=== PATIENT | male | born 1940 | race American Indian/Alaskan Native ===

== ENCOUNTER 2021-01-24 20:53 | Inpatient (IN) | payer MEDICARE ==
--- NOTE | 2021-01-24 21:05 | Event Note ---
ED Screening Note Date of service: 01/24/21 Time: 21:02 ED Screening Note: 80-year-old male was brought to the ER today by close family friend with complaints of slurred speech abnormal gait. Patient states that he noticed the symptoms around 1145 this morning. In addition to the slurred speech and abnormal gait he was having some burning sensation to the left side of his face but this has since resolved. He denies any facial weakness, focal extremity weakness, vision changes, difficulty swallowing, falls or syncope, chest pain or shortness of breath. In triage -slight deviation to the right noted in the tongue but otherwise no other neuro deficits noted in triage. His speech to me appears normal but his friend states that his speech is slurred, does not his normal speech. Patient takes Flomax for prostate issues but otherwise denies any other significant past history. This initial assessment/diagnostic orders/clinical plan/treatment(s) is/are subject to change based on patients health status, clinical progression and re- assessment by fellow clinical providers in the ED. Further treatment and workup at subsequent clinical providers discretion. Patient/guardian urged not to elope from the ED as their condition may be serious if not clinically assessed and managed. Initial orders include: Stroke order sets
--- NOTE | 2021-01-24 21:13 | Emergency Department Report ---
HPI - General Chief Complaint: Neuro Symptoms/Deficit Time Seen by Provider: 01/24/21 21:09 - HPI HPI: This is an 80-year-old male presents to the emergency department from home through triage as a code stroke. Around 11 AM the patient began having some difficulty with and/or slurred speech. He also feels off balanced. At the time of my examination it is difficult to tell that the patient has dysarthria or aphasia but when asked if the patient is having slurred speech or a change in his speech, the patient says "yes I know I am." Patient presents with a very elevated blood pressure but denies any history of hypertension. His only past medical history is previous and/or remote prostate cancer that was treated with radiation seed therapy. He denies any headache, vision change, numbness, focal or lateralizing weakness. He does describe having some mild "heaviness" to the right leg." Patient also says that 1 week ago he had an episode of severe vertigo but that resolved without any treatment. The patient also has not taken anything today prior to presentation. No recent travel or sick contacts at home. ED Past Medical Hx - Past Medical History Previous Medical History?: Yes Additional medical history: enlarged prostate - Social History Smoking Status: Never Smoker ED Review of Systems ROS: Stated complaint: STUMBLING SLURRING SPEEN Other details as noted in HPI Comment: All other systems reviewed and negative Constitutional: denies: chills, fever Eyes: denies: eye pain, vision change ENT: denies: ear pain, throat pain Respiratory: denies: cough, shortness of breath Cardiovascular: denies: chest pain, palpitations Gastrointestinal: denies: abdominal pain, vomiting Genitourinary: denies: dysuria, discharge Musculoskeletal: denies: back pain, arthralgia Skin: denies: rash Neurological: other (Change in speech, disequilibrium). denies: headache Physical Exam - Physical Exam Vital Signs: Vital Signs 01/24/21 21:00 Temperature 98.7 F Pulse Rate 69 Respiratory 14 Rate Blood Pressure 191/90 O2 Sat by Pulse 99 Oximetry Physical Exam: GENERAL: The patient is well-developed well-nourished. HENT: Normocephalic. Atraumatic. Patient has moist mucous membranes. EYES: Extraocular motions are intact. Pupils equal reactive to light bilaterally. NECK: Supple. Trachea is midline. CHEST/LUNGS: Clear to auscultation. There is no respiratory distress noted. HEART/CARDIOVASCULAR: Regular. There is no tachycardia. There is no murmur. ABDOMEN: Abdomen is soft, nontender. Patient has normal bowel sounds. There is no abdominal distention. SKIN: Skin is warm and dry. NEURO: The patient is awake, alert, and oriented. The patient is cooperative. No motor or sensory deficits. Very mild aphasia. No facial asymmetry. No pronator drift or dysmetria. MUSCULOSKELETAL: There is no tenderness or deformity. There is no limitation range of motion. ED Course Vital Signs 01/24/21 21:00 Temperature 98.7 F Pulse Rate 69 Respiratory 14 Rate Blood Pressure 191/90 O2 Sat by Pulse 99 Oximetry - Consultations Consultation #1: 01/24/21 21:21 Patient was seen by the telemedicine neurologist who is asked for an order to be placed for CT angiography of the head and neck. ED Medical Decision Making - Lab Data Result diagrams: 01/24/21 21:49 01/24/21 21:49 Lab Results 01/24/21 01/24/21 01/24/21 Range/Units 21:09 21:49 21:49 WBC 5.5 (4.5-11.0) K/mm3 RBC 5.06 H (3.65-5.03) M/mm3 Hgb 16.0 H (11.8-15.2) gm/dl Hct 45.9 H (35.5-45.6) % MCV 91 (84-94) fl MCH 32 (28-32) pg MCHC 35 H (32-34) % RDW 13.4 (13.2-15.2) % Plt Count 179 (140-440) K/mm3 Lymph % (Auto) 18.0 (13.4-35.0) % Rusk % (Auto) 11.0 H (0.0-7.3) % Eos % (Auto) 1.6 (0.0-4.3) % Baso % (Auto) 0.6 (0.0-1.8) % Lymph # (Auto) 1.0 L (1.2-5.4) K/mm3 Rusk # (Auto) 0.6 (0.0-0.8) K/mm3 Eos # (Auto) 0.1 (0.0-0.4) K/mm3 Baso # (Auto) 0.0 (0.0-0.1) K/mm3 Seg Neutrophils % 68.8 (40.0-70.0) % Seg Neutrophils # 3.8 (1.8-7.7) K/mm3 PT 13.4 (12.2-14.9) Sec. INR 1.04 (0.87-1.13) APTT 33.0 (24.2-36.6) Sec. Thrombin Time 17.5 (15.1-19.6) Sec. Sodium (137-145) mmol/L Potassium (3.6-5.0) mmol/L Chloride (98-107) mmol/L Carbon Dioxide (22-30) mmol/L Anion Gap mmol/L BUN (9-20) mg/dL Creatinine (0.8-1.3) mg/dL Estimated GFR ml/min BUN/Creatinine Ratio % Glucose (75-100) mg/dL POC Glucose 112 H (70-105) mg/dL Calcium (8.4-10.2) mg/dL Total Bilirubin (0.1-1.2) mg/dL AST (5-40) units/L ALT (7-56) units/L Alkaline Phosphatase (35-129) units/L Total Creatine Kinase (55-170) units/L CK-MB (CK-2) (0.0-4.0) ng/mL CK-MB (CK-2) Rel Index (0-4) Troponin T (0.00-0.029) ng/mL Total Protein (6.3-8.2) g/dL Albumin (3.9-5) g/dL Albumin/Globulin Ratio % TSH (0.270-4.200) mlU/mL 01/24/21 01/24/21 01/24/21 Range/Units 21:49 21:49 21:49 WBC (4.5-11.0) K/mm3 RBC (3.65-5.03) M/mm3 Hgb (11.8-15.2) gm/dl Hct (35.5-45.6) % MCV (84-94) fl MCH (28-32) pg MCHC (32-34) % RDW (13.2-15.2) % Plt Count (140-440) K/mm3 Lymph % (Auto) (13.4-35.0) % Rusk % (Auto) (0.0-7.3) % Eos % (Auto) (0.0-4.3) % Baso % (Auto) (0.0-1.8) % Lymph # (Auto) (1.2-5.4) K/mm3 Rusk # (Auto) (0.0-0.8) K/mm3 Eos # (Auto) (0.0-0.4) K/mm3 Baso # (Auto) (0.0-0.1) K/mm3 Seg Neutrophils % (40.0-70.0) % Seg Neutrophils # (1.8-7.7) K/mm3 PT (12.2-14.9) Sec. INR (0.87-1.13) APTT (24.2-36.6) Sec. Thrombin Time (15.1-19.6) Sec. Sodium 138 (137-145) mmol/L Potassium 4.3 (3.6-5.0) mmol/L Chloride 101.7 (98-107) mmol/L Carbon Dioxide 27 (22-30) mmol/L Anion Gap 14 mmol/L BUN 22 H (9-20) mg/dL Creatinine 0.9 (0.8-1.3) mg/dL Estimated GFR > 60 ml/min BUN/Creatinine Ratio 24 % Glucose 103 H (75-100) mg/dL POC Glucose (70-105) mg/dL Calcium 9.4 (8.4-10.2) mg/dL Total Bilirubin 0.40 (0.1-1.2) mg/dL AST 25 (5-40) units/L ALT 24 (7-56) units/L Alkaline Phosphatase 80 (35-129) units/L Total Creatine Kinase 109 (55-170) units/L CK-MB (CK-2) 2.8 (0.0-4.0) ng/mL CK-MB (CK-2) Rel Index 2.5 (0-4) Troponin T < 0.010 (0.00-0.029) ng/mL Total Protein 7.2 (6.3-8.2) g/dL Albumin 4.6 (3.9-5) g/dL Albumin/Globulin Ratio 1.8 % TSH 2.300 (0.270-4.200) mlU/mL - EKG Data -: EKG Interpreted by Vt EKG shows normal: sinus rhythm, axis, intervals, QRS complexes, ST-T waves Rate: normal - EKG Data When compared to previous EKG there are: previous EKG unavailable Interpretation: normal EKG - Radiology Data Radiology results: report reviewed CT HEAD WITHOUT CONTRAST INDICATION / CLINICAL INFORMATION: Stroke symptoms. Achalasia, disequilibrium TECHNIQUE: All CT scans at this location are performed using CT dose reduction for ALARA by means of automated exposure control. COMPARISON: None available. FINDINGS: HEMORRHAGE: None. EXTRA-AXIAL SPACES: Normal in size and morphology for the patient's age. VENTRICULAR SYSTEM: Normal in size and morphology for the patient's age. CEREBRAL PARENCHYMA: Mild/moderate age-appropriate cerebral atrophy. No significant abnormality. No acute territorial infarct. MIDLINE SHIFT OR HERNIATION: None. CEREBELLUM / BRAINSTEM: No significant abnormality. ORBITS: Normal as visualized. SOFT TISSUES of HEAD: No significant abnormality. CALVARIUM: No significant abnormality. PARANASAL SINUSES / MASTOID AIR CELLS: Normal as visualized. ADDITIONAL FINDINGS: None. IMPRESSION: 1. No intracranial bleed or large territorial infarction. CT angio neck, CT angio head HISTORY: CVA, aphasia, disequalibrium COMPARISON: C T head dated same day. TECHNIQUE: CTA of the neck and head is performed after IV contrast. 3-D/MIP reformats were postprocessed. Percentage stenosis is determined by direct quantitative measurements of diseased internal carotid artery diameter compared with normal distal internal carotid artery reference segments or by criteria similar to NASCET where applicable. All CT scans at this location are performed using CT dose reduction for ALARA by means of automated exposure control. FINDINGS: CTA NECK: Aortic arch: No significant abnormality. Cervical vertebral arteries: No occlusion or hemodynamically significant stenosis. Common Carotid arteries: No occlusion or hemodynamically significant stenosis. Internal carotid arteries: Atherosclerosis the proximal internal carotid arteries. Less than 50% stenosis bilaterally. No occlusion or hemodynamically significant stenosis. CTA HEAD: Intracranial internal carotid arteries: Mild atherosclerosis in the carotid siphons. No occlusion or significa nt stenosis. Anterior cerebral arteries: No occlusion or significant stenosis. Middle cerebral arteries: No occlusion or significant stenosis. Intracranial vertebral arteries: Atherosclerosis of the right V4 segment. No occlusion or significant stenosis. Basilar artery: No occlusion or significant stenosis. Posterior cerebral arteries: No occlusion or significant stenosis. No aneurysm. Additional findings: None. IMPRESSION: 1. CTA NECK: No occlusion or significant stenosis of the carotid or vertebral arteries. 2. CTA HEAD: No occlusion or significant stenosis of the major intracranial vasculature. - Medical Decision Making This patient presented as a code stroke with the complaint of some aphasia and disequilibrium. As the symptoms started about 11 AM, and a presentation to the emergency department at about 9 PM, the patient is outside of the window for TPA. During my initial examination the patient has very mild aphasia, but otherwise does not have any motor or sensory deficits, focal or lateralizing deficits, or any facial asymmetry. The patient went and had a CT scan of the head without contrast that did not show any hemorrhage, large vessel occlusion, hydrocephalus, or any other acute process. At this time he was seen by the telemedicine neurologist who requested the patient receive a CT angiography of the head and neck. He was given an NIH stroke scale of 1. CT angiography of the head and neck did not show any large vessel occlusion, thrombus, significant stenosis, or any other acute process. Based on the recommendations from the telemedicine neurologist, they recommend admission for further evaluation as well as treatment with both aspirin and Plavix. The patient's labs have been mostly unremarkable including CBC, metabolic panel, coags, thyroid function and negative troponin. The patient did present with elevated blood pressure despite no previous history of hypertension. He says that he has been checking his blood pressure over the past 4 days and it is rarely gone above a systolic of 130. The patient was given a full dose aspirin. Patient will be admitted to telemetry and has been accepted for admission by the hospitalist, Dr. Blake. Critical Care Time: No Critical care attestation.: If time is entered above; I have spent that time in minutes in the direct care of this critically ill patient, excluding procedure time. ED Disposition Clinical Impression: Aphasia, Disequilibrium Hypertension Qualifiers: Hypertension type: essential hypertension Qualified Code(s): I10 - Essential (primary) hypertension Disposition: OP ADMIT IP TO THIS HOSP Is pt being admited?: Yes Condition: Serious Time of Disposition: 22:24
--- NOTE | 2021-01-24 21:29 | Consultation ---
Medications and Allergies Allergies Allergy/AdvReac Type Severity Reaction Status Date / Time No Known Allergies Allergy Unverified 01/24/21 20:57 Physical Examination - Vital Signs Vital Signs: Vital Signs Temp Pulse Resp BP Pulse Ox 98.7 F 69 14 191/90 99 01/24/21 21:00 01/24/21 21:00 01/24/21 21:00 01/24/21 21:00 01/24/21 21:00 Assessment and Plan [facility] Consult Note # Demographics Consult Type: Acute Stroke Level 2 (4.5-24 hrs) Patient Location: Emergency Room First Name: Abel Last Name: Alexis Date of : 1940 Age: 80 Gender: Male Time of Initial Page (): 01/24/2021, 21:09 Time of Return Call (): 01/24/2021, 21:09 # HPI History: 80M with slurred speech and facial droop that has reportedly resolved. Patient report ongoing speech trouble, onset 11:30 or so local time. # Scores Time of exam and NIHSS (): 01/24/2021, 21:17 Level of Consciousness 1a: [0] = Alert; keenly responsive LOC Questions 1b: [0] = Answers both questions correctly LOC Commands 1c: [0] = Performs both tasks correctly Best Gaze 2: [0] = Normal Visual 3: [0] = No visual loss Facial Palsy 4: [0] = Normal symmetrical movements Motor Arm Left 5a: [0] = No drift Motor Arm Right 5b: [0] = No drift Motor Leg Left 6a: [0] = No drift Motor Leg Right 6b: [0] = No drift Limb Ataxia 7: [0] = Absent Sensory 8: [0] = Normal Best Language 9: [1] = [id number] aphasia Dysarthria 10: [0] = Normal Extinction and Inattention 11: [0] = No abnormality NIHSS Total: 1 # [id number] Past Surgical History: brace on right leg, chronic injury Medications: aspirin # Data Time Head CT personally read by me ( Time): 01/24/2021, 21:[address]: no bleed, preliminarily reviewed by me, please refer to radiology read for official reading # Assessment Impression: Ischemic Stroke (Acute) # Plan Thrombolytic/Intervention: NOT IV Thrombolytic or IA Intervention Thrombolytic Exclusion (< 3 hour window): time of onset unclear Thrombolytic Exclusion: > 4.5 hours Intraarterial Exclusion: pending CTA head/neck. Target Blood Pressure: SBP < 220 Imaging: (urgency: STAT in ED): CT Angiogram Head and CT Angiogram Neck Imaging: (urgency: routine admission): MRI Brain without contrast Diagnostic Test: echo without bubble study Medication: aspirin 81 mg PLUS clopidogrel (Plavix) 75 mg for 21 days, then monotherapy therafter, start statin with goal of LDL < 70 Other: LDL < 70, permissive hypertension, telemetry monitoring, I have discussed my recommendations with the referring provider Disposition: admit # Logistics Telemedicine: Interactive 2 way audio and visual telecommunication technology was utilized during this visit
--- NOTE | 2021-01-24 21:50 | Cat Scan Report ---
CT HEAD WITHOUT CONTRAST INDICATION / CLINICAL INFORMATION: Stroke symptoms. Achalasia, disequilibrium TECHNIQUE: All CT scans at this location are performed using CT dose reduction for ALARA by means of automated e xposure control. COMPARISON: None available. FINDINGS: HEMORRHAGE: None. EXTRA-AXIAL SPACES: Normal in size and morphology for the patient's age. VENTRICULAR SYSTEM: Normal in size and morphology for the patient's age. CEREBRAL PARENCHYMA: Mild/moderate age-appropriate cerebral atrophy. No significant abnormality. No a cute territorial infarct. MIDLINE SHIFT OR HERNIATION: None. CEREBELLUM / BRAINSTEM: No significant abnormality. ORBITS: Normal as visualized. SOFT TISSUES of HEAD: No significant abnormality. CALVARIUM: No significant abnormality. PARANASAL SINUSES / MASTOID AIR CELLS: Normal as visualized. ADDITIONAL FINDINGS: None. IMPRESSION: 1. No intracranial bleed or large territorial infarction. CODE STROKE: Time of Communication ([employer]PER[employer] ORDER [employer]AK[employer]/CDT): 846 PM Central time 01/24/2021 Licensed Practitioner Receiving Report: Dr Klein Signer Name: Alexandre Gu MD Signed: 01/24/2021 9:46 PM Workstation Name: [id number]
--- NOTE | 2021-01-24 21:56 | Cat Scan Report ---
CT angio neck, CT angio head HISTORY: CVA, aphasia, disequalibrium COMPARISON: CT head dated same day. TECHNIQUE: CTA of the neck and head is performed after IV contrast. 3-D/MIP reformats were postproces sed. Percentage stenosis is determined by direct quantitative measurements of diseased internal recio tid artery diameter compared with normal distal internal carotid artery reference segments or by crit eria similar to NASCET where applicable. All CT scans at this location are performed using CT dose re duction for ALARA by means of automated exposure control. FINDINGS: CTA NECK: Aortic arch: No significant abnormality. Cervical vertebral arteries: No occlusion or hemodynamically significant stenosis. Common Carotid arteries: No occlusion or hemodynamically significant stenosis. Internal carotid arteries: Atherosclerosis the proximal internal carotid arteries. Less than 50% sten osis bilaterally. No occlusion or hemodynamically significant stenosis. CTA HEAD: Intracranial internal carotid arteries: Mild atherosclerosis in the carotid siphons. No occlusion or significant stenosis. Anterior cerebral arteries: No occlusion or significant stenosis. Middle cerebral arteries: No occlusion or significant stenosis. Intracranial vertebral arteries: Atherosclerosis of the right V4 segment. No occlusion or significant stenosis. Basilar artery: No occlusion or significant stenosis. Posterior cerebral arteries: No occlusion or significant stenosis. No aneurysm. Additional findings: None. IMPRESSION: 1. CTA NECK: No occlusion or significant stenosis of the carotid or vertebral arteries. 2. CTA HEAD: No occlusion or significant stenosis of the major intracranial vasculature. Signer Name: Kelvin Moreno MD Signed: 01/24/2021 9:51 PM Workstation Name: [id number]
[2021-01-24 22:03] LABS: Basophils % (Auto) 0.6 % (0.0-1.8); Eosinophils # (Auto) 0.1 K/mm3 (0.0-0.4); Eosinophils % (Auto) 1.6 % (0.0-4.3); Hematocrit 45.9 % (35.5-45.6); Mean Corpuscular HGB Conc 35 % (32-34); Mean Corpuscular Volume 91 fl (84-94); Monocytes # (Auto) 0.6 K/mm3 (0.0-0.8); Platelet Count 179 K/mm3 (140-440); Red Blood Count 5.06 M/mm3 (3.65-5.03); Red Cell Distribution Width 13.4 % (13.2-15.2)
[2021-01-24 22:14] LABS: INR 1.04 (0.87-1.13)
[2021-01-24 22:15] LABS: Thrombin Time 17.5 Sec. (15.1-19.6)
[2021-01-24 22:18] LABS: Alanine Aminotransferase 24 units/L (7-56); Albumin 4.6 g/dL (3.9-5); BUN/Creatinine Ratio 24; Blood Urea Nitrogen 22 mg/dL (9-20); Calcium 9.4 mg/dL (8.4-10.2); Hemolysis Index 3
[2021-01-24 22:21] LABS: Creatine Kinase MB 2.8 ng/mL (0.0-4.0)
[2021-01-24] MEDS ORDERED: ASPIRIN 81 MG TAB CHEW PO ONE ×2 (22:23→22:42)
[2021-01-24] MEDS ORDERED: ONDANSETRON 4 MG/2 ML INJ IV PRN (22:38)
[2021-01-24] MEDS ORDERED: ALBUTEROL 2.5 MG/3 ML NEBU IH PRN (22:38)
--- NOTE | 2021-01-24 22:48 | History and Physical Report ---
History of Present Illness Date of examination: 01/24/21 Date of admission: 01/24/21 Chief complaint: Slurred speech Disequilibrium History of present illness: 80-year-old male with past medical history of prostate cancer was brought to the emergency department from home because patient began having some difficulty with and/or slurred speech since 11 AM. He also feels off balanced. At the time of my examination it is difficult to tell that the patient has dysarthria or aphasia but when asked if the patient is having slurred speech or a change in his speech, the patient says "yes I know I am." Patient presents with a very elevated blood pressure but denies any history of hypertension. His only past medical history is previous and/or remote prostate cancer that was treated with radiation seed therapy. He denies any headache, vision change, numbness, focal or lateralizing weakness. He does describe having some mild "heaviness" to the right leg." Patient also says that 1 week ago he had an episode of severe vertigo but that resolved without any treatment. The patient also has not taken anything today prior to presentation. No recent travel or sick contacts at home. In the emergency room initial CT scan of the head without contrast shows no acute intracranial abnormality. Patient is seen and evaluated by telemetry neuro Past History Past Medical History: other (Prostate cancer) Medications and Allergies Allergies Allergy/AdvReac Type Severity Reaction Status Date / Time No Known Allergies Allergy Unverified 01/24/21 20:57 Active Meds: Active Medications Acetaminophen (Acetaminophen 325 Mg Tab) 650 mg PO Q4H PRN PRN Reason: Pain MILD(1-3)/Fever >100.5/VARGAS Ondansetron HCl (Ondansetron 4 Mg/2 Ml Inj) 4 mg IV Q8H PRN PRN Reason: Nausea And Vomiting Sodium Chloride (Sodium Chloride 0.9% 10 Ml Flush Syringe) 10 ml IV BID JOSIAH Sodium Chloride (Sodium Chloride 0.9% 10 Ml Flush Syringe) 10 ml IV PRN PRN PRN Reason: LINE FLUSH Sodium Chloride (Sodium Chloride 0.9% 10 Ml Flush Syringe) 10 ml INJ PRN PRN PRN Reason: LINE FLUSH Review of Systems Neurological: aphasia, change in speech, balance difficulties Exam - Constitutional Vitals: Temp Pulse Resp BP Pulse Ox 98.7 F 69 14 191/90 99 01/24/21 21:00 05/23/21 21:00 01/24/21 21:00 01/24/21 21:00 01/24/21 21:00 General appearance: Present: no acute distress, well-nourished - EENT Eyes: Present: PERRL ENT: hearing intact, clear oral mucosa - Neck Neck: Present: supple, normal ROM - Respiratory Respiratory effort: normal Respiratory: bilateral: CTA - Cardiovascular Heart Sounds: Present: S1 & S2. Absent: rub, click - Extremities Extremities: pulses symmetrical, No edema Peripheral Pulses: within normal limits - Abdominal General gastrointestinal: Present: soft, non-tender, non-distended, normal bowel sounds Male genitourinary: Present: normal - Integumentary Integumentary: Present: clear, warm, dry - Musculoskeletal Musculoskeletal: gait normal, strength equal bilaterally - Psychiatric Psychiatric: appropriate mood/affect, intact judgment & insight - Neurologic Neurologic: CNII-XII intact, moves all extremities, other (Slurred speech. Disequilibrium) HEART Score - HEART Score Troponin: Troponin T < 0.010 ng/mL (0.00-0.029) 01/24/21 21:49 Results - Labs CBC & Chem 7: 01/24/21 21:49 01/24/21 21:49 Labs: Laboratory Last Values WBC 5.5 K/mm3 (4.5-11.0) 01/24/21 21:49 RBC 5.06 M/mm3 (3.65-5.03) H 01/24/21 21:49 Hgb 16.0 gm/dl (11.8-15.2) H 01/24/21 21:49 Hct 45.9 % (35.5-45.6) H 01/24/21 21:49 MCV 91 fl (84-94) 01/24/21 21:49 MCH 32 pg (28-32) 01/24/21 21:49 MCHC 35 % (32-34) H 01/24/21 21:49 RDW 13.4 % (13.2-15.2) 01/24/21 21:49 Plt Count 179 K/mm3 (140-440) 01/24/21 21:49 Lymph % (Auto) 18.0 % (13.4-35.0) 01/24/21 21:49 Clay % (Auto) 11.0 % (0.0-7.3) H 01/24/21 21:49 Eos % (Auto) 1.6 % (0.0-4.3) 01/24/21 21:49 Baso % (Auto) 0.6 % (0.0-1.8) 01/24/21 21:49 Lymph # (Auto) 1.0 K/mm3 (1.2-5.4) L 01/24/21 21:49 Clay # (Auto) 0.6 K/mm3 (0.0-0.8) 01/24/21 21:49 Eos # (Auto) 0.1 K/mm3 (0.0-0.4) 01/24/21 21:49 Baso # (Auto) 0.0 K/mm3 (0.0-0.1) 01/24/21 21:49 Seg Neutrophils % 68.8 % (40.0-70.0) 01/24/21 21:49 Seg Neutrophils # 3.8 K/mm3 (1.8-7.7) 01/24/21 21:49 PT 13.4 Sec. (12.2-14.9) 01/24/21 21:49 INR 1.04 (0.87-1.13) 01/24/21 21:49 APTT 33.0 Sec. (24.2-36.6) 01/24/21 21:49 Thrombin Time 17.5 Sec. (15.1-19.6) 01/24/21 21:49 Sodium 138 mmol/L (137-145) 01/24/21 21:49 Potassium 4.3 mmol/L (3.6-5.0) 01/24/21 21:49 Chloride 101.7 mmol/L (98-107) 01/24/21 21:49 Carbon Dioxide 27 mmol/L (22-30) 01/24/21 21:49 Anion Gap 14 mmol/L 01/24/21 21:49 BUN 22 mg/dL (9-20) H 01/24/21 21:49 Creatinine 0.9 mg/dL (0.8-1.3) 01/24/21 21:49 Estimated GFR > 60 ml/min 01/24/21 21:49 BUN/Creatinine Ratio 24 % 01/24/21 21:49 Glucose 103 mg/dL (75-100) H 01/24/21 21:49 POC Glucose 112 mg/dL (70-105) H 01/24/21 21:09 Calcium 9.4 mg/dL (8.4-10.2) 01/24/21 21:49 Total Bilirubin 0.40 mg/dL (0.1-1.2) 01/24/21 21:49 AST 25 units/L (5-40) 01/24/21 21:49 ALT 24 units/L (7-56) 01/24/21 21:49 Alkaline Phosphatase 80 units/L (35-129) 01/24/21 21:49 Total Creatine Kinase 109 units/L (55-170) 01/24/21 21:49 CK-MB (CK-2) 2.8 ng/mL (0.0-4.0) 01/24/21 21:49 CK-MB (CK-2) Rel Index 2.5 (0-4) 01/24/21 21:49 Troponin T < 0.010 ng/mL (0.00-0.029) 01/24/21 21:49 Total Protein 7.2 g/dL (6.3-8.2) 01/24/21 21:49 Albumin 4.6 g/dL (3.9-5) 01/24/21 21:49 Albumin/Globulin Ratio 1.8 % 01/24/21 21:49 TSH 2.300 mlU/mL (0.270-4.200) 01/24/21 21:49 - Imaging and Cardiology CT Scan - head: report reviewed Assessment and Plan VTE prophylaxis?: Chemical Plan of care discussed with patient/family: Yes - Patient Problems (1) Stroke Current Visit: Yes Status: Acute Plan to address problem: Admit the patient to the medical telemetry. Aspirin 81 mg p.o. daily. Plavix 75 mg p.o. daily. Lipitor 40 mg p.o. daily. MRI of the brain with and without contrast. Echocardiogram and carotid Dopplers. Patient already had CTA of the head and neck. Will consult PT OT any speech evaluation. We also consult neurology evaluation (2) Aphasia Current Visit: Yes Status: Acute Plan to address problem: Mostly resolved. Will consult speech for evaluation. Aspirin 81 mg p.o. daily. Plavix 75 mg p.o. daily. Lipitor 40 mg p.o. daily (3) Disequilibrium Current Visit: Yes Status: Acute Plan to address problem: Aspirin 81 mg p.o. daily. Plavix 75 mg p.o. daily. Lipitor 40 mg p.o. daily. Will consult PT OT any speech evaluation. (4) Hypertension Current Visit: Yes Status: Acute Plan to address problem: Hydralazine 10 mg IV every 6 hours as needed. We will monitor the blood pressure closely (5) DVT prophylaxis Current Visit: Yes Status: Acute Plan to address problem: Heparin 5000 units subcu every 8 hours for DVT prophylaxis. Protonix 40 mg p.o. daily for GI prophylaxis. Patient is a full code
[2021-01-24] MEDS ORDERED: hydrALAZINE 20 MG/1 ML INJ IV PRN (22:51)
[2021-01-24] MEDS ORDERED: D5W/0.45% NACL 1,000 ML IV SCH (23:00)
[2021-01-25] MEDS ORDERED: IPRATROPIUM/ALBUTEROL SULFATE 3 ML AMPUL.NEB IH SCH (02:00)
[2021-01-25 03:03] LABS: Chol/HDL Ratio 4.52 %
[2021-01-25] MEDS: HEPARIN 5,000 UNIT/1 ML VIAL SUB-Q SCH ×3 (05:28→21:53)
--- NOTE | 2021-01-25 07:27 | Consultation ---
History of Present Illness Consult date: 01/25/21 Reason for Consult: slurred speech ,unsteady gait History of present illness: Slurred speech Disequilibrium History of present illness: 80-year-old male with past medical history of prostate cancer was brought to the emergency department from home because patient began having some difficulty with and/or slurred speech since 11 AM yesterday He also feels off balanced. At the time of my examination it is difficult to tell that the patient has slurred speech Patient presents with a very elevated blood pressure 178/87 but denies any history of hypertension. His only past medical history is previous and/or remote prostate cancer that was treated with radiation seed therapy. He denies any headache, vision change, numbness, focal or lateralizing weakness. He does describe having some mild "heaviness" to the right leg." Patient also says that 1 week ago he had an episode of severe vertigo but that resolved without any treatment. The patient also has not taken anything today prior to presentation. No recent travel or sick contacts at home. In the emergency room initial CT scan of the head without contrast shows no acute intracranial abnormality. Patient is seen and evaluated by telemetry neur o Past History Past Medical History: other (Prostate cancer) Medications and Allergies Allergies Allergy/AdvReac Type Severity Reaction Status Date / Time No Known Allergies Allergy Unverified 01/24/21 20:57 Active Meds: Active Medications Acetaminophen (Acetaminophen 325 Mg Tab) 650 mg PO Q4H PRN PRN Reason: Pain MILD(1-3)/Fever >100.5/VARGAS Ondansetron HCl (Ondansetron 4 Mg/2 Ml Inj) 4 mg IV Q8H PRN PRN Reason: Nausea And Vomiting Sodium Chloride (Sodium Chloride 0.9% 10 Ml Flush Syringe) 10 ml IV BID JOSIAH Sodium Chloride (Sodium Chloride 0.9% 10 Ml Flush Syringe) 10 ml IV PRN PRN PRN Reason: LINE FLUSH Sodium Chloride (Sodium Chloride 0.9% 10 Ml Flush Syringe) 10 ml INJ PRN PRN PRN Reason: LINE FLUSH Review of Systems Neurological: aphasia, change in speech, balance difficulties Past History Past Medical History: other (Prostate cancer) Medications and Allergies Allergies Allergy/AdvReac Type Severity Reaction Status Date / Time No Known Allergies Allergy Verified 01/24/21 23:02 Home Medications Medication Instructions Recorded Confirmed Last Taken Type Tamsulosin [Flomax] 0.4 mg PO QDAY 01/25/21 01/25/21 Unknown History amLODIPine [Norvasc] 5 mg PO DAILY 01/25/21 01/25/21 Unknown History Active Meds: Active Medications Acetaminophen (Acetaminophen 325 Mg Tab) 650 mg PO Q4H PRN PRN Reason: Pain MILD(1-3)/Fever >100.5/VARGAS Albuterol (Albuterol 2.5 Mg/3 Ml Nebu) 2.5 mg IH Q3HRT PRN PRN Reason: Shortness Of Breath Aspirin (Aspirin 81 Mg Tab Chew) 81 mg PO QDAY JOSIAH Atorvastatin Calcium (Atorvastatin 40 Mg Tab) 40 mg PO QHS JOSIAH Clopidogrel Bisulfate (Clopidogrel 75 Mg Tab) 75 mg PO QDAY [facility] Heparin Sodium (Porcine) (Heparin 5,000 Unit/1 Ml Vial) 5,000 unit SUB-Q Q8HR JOSIAH Last Admin: 01/25/21 05:28 Dose: 5,000 unit Documented by: Hydralazine HCl (Hydralazine 20 Mg/1 Ml Inj) 10 mg IV Q6H PRN PRN Reason: htn Dextrose/Sodium Chloride (D5/0.45ns) 1,000 mls @ 100 mls/hr IV DIRECT JOSIAH Last Admin: 01/25/21 01:34 Dose: 100 mls/hr Documented by: Ondansetron HCl (Ondansetron 4 Mg/2 Ml Inj) 4 mg IV Q8H PRN PRN Reason: Nausea And Vomiting Pantoprazole Sodium (Pantoprazole 40 Mg Tab) 40 mg PO QDAC JOSIAH Sodium Chloride (Sodium Chloride 0.9% 10 Ml Flush Syringe) 10 ml IV BID JOSIAH Sodium Chloride (Sodium Chloride 0.9% 10 Ml Flush Syringe) 10 ml IV PRN PRN PRN Reason: LINE FLUSH Last Admin: 01/25/21 01:35 Dose: 10 ml Documented by: Physical Examination - Vital Signs Vital Signs: Vital Signs Temp Pulse Resp BP Pulse Ox 98.7 F 69 14 191/90 99 01/24/21 21:00 01/24/21 21:00 01/24/21 21:00 01/24/21 21:00 01/24/21 21:00 - Constitutional General appearance: comfortable - EENT EENT: Present: PERRL, mucous membranes moist - Respiratory Respiratory: Present: chest non-tender, lungs clear - Cardiovascular Cardiovascular: Present: regular rate, normal S1, normal S2 Extremities: Present: no peripheral edema bilatateraly - Gastrointestinal Gastrointestinal: Present: normoactive bowel sounds - Integumentary Integumentary: Present: normal - Neurologic Cranial nerve examination: PERRL, EOMI, intact Speech examination: intact Sensorimotor examination: intact Detailed motor examination: grossly full strength in Detailed sensory examination: intact Results - Laboratory Findings CBC and BMP: 01/24/21 21:49 01/24/21 21:49 Abnormal Lab Findings: Abnormal Labs 01/24/21 01/24/21 01/24/21 21:09 21:49 21:49 RBC 5.06 H Hgb 16.0 H Hct 45.9 H MCHC 35 H [place] % (Auto) 11.0 H Lymph # (Auto) 1.0 L BUN 22 H Glucose 103 H POC Glucose 112 H Triglycerides Cholesterol LDL Cholesterol Direct 01/24/21 21:49 RBC Hgb Hct MCHC [place] % (Auto) Lymph # (Auto) BUN Glucose POC Glucose Triglycerides 164 H Cholesterol 217 H LDL Cholesterol Direct 147 H Assessment and Plan Assessment and Plan 80-year-old male with past medical history of prostate cancer was brought to the emergency department from home because patient began having some difficulty with and/or slurred speech since 11 AM. He also feels off balanced. At the time of my examination it is difficult to tell that the patient has dysarthria or aphasia but when asked if the patient is having slurred speech or a change in his speech, # Stroke -Exam is unremarkable today -BP is better controlled -CT brain ,CTA brain and neck are unremarkable -MRI brain is remarkable for subacute event in left AKIRA -Admit the patient to the medical telemetry. -started on Aspirin 81 mg p.o. daily. Plavix 75 mg p.o. daily. - Lipitor 40 mg p.o. daily. - Echocardiogram and carotid Dopplers are pending - Patient already had CTA of the head and neck are unremarkable - Will consult PT OT any speech evaluation. # Slurred speech on admission -Mostly resolved. - Will consult speech for evaluation. - Aspirin 81 mg p.o. daily. Plavix 75 mg p.o. daily. Lipitor 40 mg p.o. daily # Disequilibrium - Aspirin 81 mg p.o. daily. Plavix 75 mg p.o. daily. Lipitor 40 mg p.o. daily. - Will consult PT OT any speech evaluation. # Hypertension -Hydralazine 10 mg IV every 6 hours as needed. We will monitor the blood pressure closely # DVT prophylaxis -Heparin 5000 units subcu every 8 hours for DVT prophylaxis. - Protonix 40 mg p.o. daily for GI prophylaxis. -Patient is a full code PLAN 1- Review echo and US carotid 2-Lipitor 40 mg daily 3- Maitain ASA 81 mg Plus Plavix 75 mg X 3 weeks then plavix 75 mg daily 4- Bettert control of BP< 150/80 5-Neuro follow up in 2-3 months will sign off
[2021-01-25] MEDS ORDERED: FAMOTIDINE 20 MG/2 ML INJ IV SCH (10:00)
--- NOTE | 2021-01-25 10:09 | Progress Note ---
Subjective Date of service: 01/25/21 Interval history: History of present illness: 80-year-old male with past medical history of prostate cancer was brought to the emergency department from home because patient began having some difficulty with and/or slurred speech since 11 AM. He also feels off balanced. At the time of my examination it is difficult to tell that the patient has dysarthria or aphasia but when asked if the patient is having slurred speech or a change in his speech, the patient says "yes I know I am." Patient presents with a very elevated blood pressure but denies any history of hypertension. His only past medical history is previous and/or remote prostate cancer that was treated with radiation seed therapy. He denies any headache, vision change, numbness, focal or lateralizing weakness. He does describe having some mild "heaviness" to the right leg." Patient also says that 1 week ago he had an episode of severe vertigo but that resolved without any treatment. The patient also has not taken anything today prior to presentation. No recent travel or sick contacts at home. In the emergency room initial CT scan of the head without contrast shows no ac [facility] intracranial abnormality. Patient is seen and evaluated by telemetry neuro 01/25 patient is alert and oriented x3, his speech appears fair, he offers no specific complaints, denies headache, dizziness or weakness. patient is being worked up for possible stroke. Scheduled for MRI brain and echocardiogram, CT of the head and CTA head and neck results reviewed, lab results reviewed Assessment and plan Disequilibrium and aphasia Rule out [employer] infarct Patient speech is normal at this time He is moving all his extremities and motor power is 5/5 in all extremities Gait was not tested NIHSS 0 Telemetry Neurochecks Continue aspirin and clopidogrel and high intensity statin PT/OT consults MRI brain and echocardiogram pending CT angiogram of the head and neck results reviewed-no LVO Hypertension Fair Dyslipidemia Continue Lipitor 40 mg daily Objective - Constitutional Vitals: Vital Signs - 12hr 01/24/21 01/24/21 01/24/21 22:16 22:30 22:46 Temperature Pulse Rate 89 86 76 Respiratory 16 14 19 Rate Blood Pressure 152/88 182/104 182/104 O2 Sat by Pulse 98 98 98 Oximetry 01/24/21 01/24/21 01/24/21 23:00 23:16 23:30 Temperature Pulse Rate 64 78 69 Respiratory 13 14 15 Rate Blood Pressure 184/99 184/99 164/89 O2 Sat by Pulse 99 99 99 Oximetry 01/24/21 01/25/21 01/25/21 23:46 00:00 00:23 Temperature Pulse Rate 60 67 65 Respiratory 18 15 Rate Blood Pressure 164/89 157/81 O2 Sat by Pulse 98 99 Oximetry 01/25/21 01/25/21 00:24 04:46 Temperature 98.2 F 98.1 F Pulse Rate 60 51 L Respiratory 16 16 Rate Blood Pressure 178/87 129/72 O2 Sat by Pulse 96 91 Oximetry General appearance: Present: no acute distress, well-nourished - EENT Eyes: PERRL, EOM intact ENT: hearing intact, clear oral mucosa - Neck Neck: supple, normal ROM, no masses or JVD - Respiratory Respiratory effort: normal Respiratory: bilateral: CTA - Cardiovascular Rhythm: regular Heart Sounds: Present: S1 & S2 Extremities: No edema - Gastrointestinal General gastrointestinal: Present: soft, non-tender Rectal Exam: deferred - Genitourinary Male genitourinary: deferred - Integumentary Integumentary: clear - Musculoskeletal Musculoskeletal: strength equal bilaterally - Neurologic Neurologic: no focal deficits, moves all extremities - Psychiatric Psychiatric: appropriate mood/affect - Labs CBC & Chem 7: 01/24/21 21:49 01/24/21 21:49 Labs: Abnormal lab results 01/24/21 01/24/21 01/24/21 Range/Units 21:09 21:49 21:49 RBC 5.06 H (3.65-5.03) M/mm3 Hgb 16.0 H (11.8-15.2) gm/dl Hct 45.9 H (35.5-45.6) % MCHC 35 H (32-34) % Dickinson % (Auto) 11.0 H (0.0-7.3) % Lymph # (Auto) 1.0 L (1.2-5.4) K/mm3 BUN 22 H (9-20) mg/dL Glucose 103 H (75-100) mg/dL POC Glucose 112 H (70-105) mg/dL Triglycerides (2-149) mg/dL Cholesterol (50-199) mg/dL LDL Cholesterol Direct (50-130) mg/dL 01/24/21 Range/Units 21:49 RBC (3.65-5.03) M/mm3 Hgb (11.8-15.2) gm/dl Hct (35.5-45.6) % MCHC (32-34) % Dickinson % (Auto) (0.0-7.3) % Lymph # (Auto) (1.2-5.4) K/mm3 BUN (9-20) mg/dL Glucose (75-100) mg/dL POC Glucose (70-105) mg/dL Triglycerides 164 H (2-149) mg/dL Cholesterol 217 H (50-199) mg/dL LDL Cholesterol Direct 147 H (50-130) mg/dL HEART Score - HEART Score Troponin: Troponin T < 0.010 ng/mL (0.00-0.029) 01/25/21 00:43
--- NOTE | 2021-01-25 10:20 | Magnetic Resonance Report ---
MR brain wo con INDICATION / CLINICAL INFORMATION: 80 years Male; MAIN. TECHNIQUE: Multiplanar, multisequence MR images of the brain were obtained. COMPARISON: The study is compared to the earlier CT of 01/24/2021. FINDINGS: BRAIN / INTRACRANIAL CONTENTS: The motion degrades the image quality despite using the fast acquisiti on sequences. However, there is ill-defined focus of increased diffusion signal within the anterior l eft kamran measuring approximately 9 mm in greatest transverse dimension. Is also corresponding decreas ed signal on the ADC map and this finding would be indicative of acute/subacute infarct. There is otherwise moderate cerebral white matter disease most notably involving periventricular costa ons and most consistent with microvascular angiopathy. 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 There is no clear evidence of acute supratentorial infarct. There is mild to moderate cerebral atrophy. The ventricular system is correspondingly appropriate in size and configuration. No extra-axial fluid collections or significant mass effect is identified. CRANIOCERVICAL JUNCTION: No significant abnormality. VASCULAR FLOW-VOIDS: The distal internal carotid arteries and vertebrobasilar system grossly demonstr ate appropriate signal voids. ORBITS: No significant abnormality of visualized orbits. SINUSES / MASTOIDS: There is minimal mucosal thickening within the ethmoid air cells. Mild fluid sign al is also seen along the inferior right mastoid air cells. ADDITIONAL FINDINGS: None. IMPRESSION: 1. The findings are indicative of 9 mm acute/subacute infarct involving anterior left kamran as detaile d above. 2. There is otherwise moderate microvascular angiopathy without evidence of acute supratentorial infa rct. Signer Name: Yossi Ryder MD Signed: 01/25/2021 10:15 AM Workstation Name: [id number]
[2021-01-25] MEDS: PANTOPRAZOLE 40 MG TAB PO SCH (10:33)
[2021-01-25] MEDS: CLOPIDOGREL 75 MG TAB PO SCH (10:33)
[2021-01-25] MEDS: ASPIRIN 81 MG TAB CHEW PO SCH (10:33)
--- NOTE | 2021-01-25 16:46 | Vascular Lab Report ---
BILATERAL CAROTID DUPLEX DOPPLER ULTRASOUND HISTORY: stroke COMPARISON: CTA head and neck 01/24/2021. TECHNIQUE: Ordonez scale, color and spectral Doppler imaging was performed of the extracranial neck [facility]. All stenosis measurements were obtained in comparison with the distal internal carotid artery per the SRU consensus criteria. FINDINGS: RIGHT NECK ARTERIES: CCA: Mild atherosclerotic plaque at the carotid bulb. ICA: Mild atherosclerotic plaque in the proximal ICA. ECA: No significant abnormality. Vertebral Artery: No significant abnormality. Antegrade flow. LEFT NECK ARTERIES: CCA: Mild atherosclerotic plaque at the carotid bulb. ICA: Mild atherosclerotic plaque at the proximal ICA. ECA: No significant abnormality. Vertebral Artery: No significant abnormality. Antegrade flow. CCA PSV: Right: 77 Left: 73 cm/sec ICA PSV: Right: 74 Left: 96 cm/sec ICA/CCA: Right: 1.0 Left 1.3 ADDITIONAL FINDINGS: None. IMPRESSION: 1. Mild atherosclerotic plaque at the bilateral carotid arteries. Estimated stenosis is 0-50%, bilate rally. Signer Name: Piyush Mahajan MD Signed: 01/25/2021 4:41 PM Workstation Name: [id number]
[2021-01-26] MEDS: HEPARIN 5,000 UNIT/1 ML VIAL SUB-Q SCH ×3 (05:58→22:48)
[2021-01-26] MEDS: PANTOPRAZOLE 40 MG TAB PO SCH (08:34)
[2021-01-26] MEDS: ASPIRIN 81 MG TAB CHEW PO SCH (09:23)
[2021-01-26] MEDS: CLOPIDOGREL 75 MG TAB PO SCH (09:23)
--- NOTE | 2021-01-26 10:33 | Electrocardiograph Report ---
[facility] Test Date: 2021-01-24 Test Time: 21:42:39 Pat Name: RIVERA DC Department: Room: A466 1 Gender: M Development Executive: ROSY : 1940 Requested By: ADRIÁN CERDA Order Number: [id number] Reading MD: Sj Wallace Measurements Intervals [place] Rate: 87 P: 30 OR: 195 QRS: 20 QRSD: 73 T: 39 QT: 363 QTc: 438 Interpretive Statements Sinus rhythm No previous ECG available for comparison Electronically Signed On 01-26-2021 10:32:57 EDT by Sj Wallace
--- NOTE | 2021-01-26 17:02 | Progress Note ---
Assessment and Plan 80-year-old male with past medical history of prostate cancer was brought to the emergency department from home because patient began having some difficulty with and/or slurred speech since 11 AM and dizziness. [facility] without contrast shows no acute intracranial abnormality. Patient is seen and evaluated by telemetry neuro in the ER and recommended to admit the patient with stroke protocol. A/P --Acute CVA Patient presented with disequilibrium and aphasia Continue aspirin and clopidogrel and high intensity statin PT/OT consults CT angiogram of the head and neck results reviewed-no LVO MRI brain positive for small acute infarct in the anterior left lower kamran Echo, PT/OT pending --Status post fall, pelvic x-ray showed no infarct -Ordered for repeat PT eval --Dizziness, likely due to acute CVA Start on meclizine twice a day, wait for PT eval --Hypertension Fair --Dyslipidemia Continue Lipitor 40 mg daily --History of prostate cancer, outpatient follow-up --DVT prophylaxis with heparin --Full CODE STATUS Daily clinical course: 01/25 patient is alert and oriented x3, his speech appears fair, he offers no specific complaints, denies headache, dizziness or weakness. patient is being worked up for possible stroke. 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 Patient continues to complains of dizziness. Patient did have a episode of fall this morning. Complains of hip pain. Will order for pelvic x-ray. BP noticed to be elevated. Continue to adjust BP meds. We will add meclizine for dizziness. If clinically stable patient will be discharged tomorrow morning. Discussed plan of care with daughter by phone in length -all question answered according to best of my knowledge. Subjective Date of service: 01/26/21 Interval history: Patient seen and examined. Medical records and medication list reviewed. No acute event overnight noted by the RN. Patient denies any chest pain or difficulty breathing. Patient is tolerating diet. Patient complains of dizziness/vertigo, also states that he fell this morning and got hurt from his buttocks Discussed plan of care at bedside with patient. Objective - Exam Narrative Exam: GENERAL: well-developed and well-nourished elderly white male lying on bed appeared to be in no discomfort. HEENT: Normocephalic. Atraumatic. No conjunctival congestion or icterus. Patient has moist mucous membranes. NECK: Supple. Trachea midline. CHEST/LUNGS: Clear to auscultated bilaterally, breathing nonlabored. No wheezes crackles or rhonchi. HEART/CARDIOVASCULAR: Regular in rate and rhythm. S1 and S2 positive. ABDOMEN: Abdomen is soft, nontender. Patient has normal bowel sounds. SKIN: There is no rash. Warm and dry. NEURO: No focal motor deficit. Follows command. MUSCULOSKELETAL: No joint effusion or tenderness. EXTRIMITY: No edema, no cyanosis or clubbing. PSYCH: Cooperative. - Constitutional Vitals: Vital Signs - 12hr 01/26/21 01/26/21 07:56 08:54 Temperature 98.8 F Pulse Rate 79 Respiratory 18 Rate Blood Pressure 167/96 O2 Sat by Pulse 97 94 Oximetry - Labs CBC & Chem 7: 01/28/21 04:33 01/28/21 04:33 HEART Score - HEART Score Troponin: Troponin T < 0.010 ng/mL (0.00-0.029) 01/25/21 00:43
[2021-01-26] MEDS ORDERED: hydrALAZINE 20 MG/1 ML INJ IV PRN (17:04)
[2021-01-26] MEDS: ACETAMINOPHEN 325 MG TAB PO PRN ×2 (17:43→22:47)
[2021-01-26] MEDS: MECLIZINE 25 MG TAB PO SCH (17:47)
--- NOTE | 2021-01-26 17:48 | XRay Report ---
Pelvis and hips 3 views INDICATION: Fall FINDINGS: Degenerative changes seen in bilateral hips with osteophyte at the femoral head neck juncti on bilaterally. No acute fracture dislocation. Sacrum and sacroiliac joints appear normal. Signer Name: Bernard Callejas MD Signed: 01/26/2021 5:43 PM Workstation Name: [id number]
[2021-01-26] MEDS ORDERED: MECLIZINE 12.5 MG TAB PO SCH (18:00)
[2021-01-26] MEDS: amLODIPine 5 MG TAB PO SCH (22:47)
[2021-01-26] MEDS: MAGNESIUM HYDROXIDE (MOM) ORAL LIQD UDC PO PRN (22:49)
[2021-01-27] MEDS: HEPARIN 5,000 UNIT/1 ML VIAL SUB-Q SCH ×3 (07:30→23:05)
[2021-01-27] MEDS: MECLIZINE 25 MG TAB PO SCH ×2 (10:27→23:06)
[2021-01-27] MEDS: CLOPIDOGREL 75 MG TAB PO SCH (10:27)
[2021-01-27] MEDS: PANTOPRAZOLE 40 MG TAB PO SCH (10:27)
[2021-01-27] MEDS: amLODIPine 5 MG TAB PO SCH (10:27)
[2021-01-27] MEDS: ASPIRIN 81 MG TAB CHEW PO SCH (10:27)
[2021-01-27] MEDS: TAMSULOSIN 0.4 MG CAP PO SCH (10:28)
--- NOTE | 2021-01-27 14:54 | Discharge Summary ---
Providers - Providers Date of Admission: 01/25/21 12:02 Date of discharge: 01/27/21 Attending physician: CHYNA SANTANA 01/24/21 Consult to Physician [CONS] Routine Comment: Consulting Provider: AMISH OSPINA Physician Instructions: Reason For Exam: cva 01/24/21 22:39 Occupational Therapy Evaluate and Treat [CONS] Routine Comment: Reason For Exam: Neuro deficits 01/26/21 17:30 Speech Therapy Evaluation and Treat [CONS] Routine Reason For Exam: cva 01/27/21 10:25 Physical Therapy Evaluation and Treat [CONS] Urgent Comment: Reason For Exam: pt stated he fell Primary care physician: [employer] Hospitalization Condition: Serious Disposition: DC-01 TO HOME OR SELFCARE Time spent for discharge: 34 minutes Core Measure Documentation - Palliative Care Palliative Care/ Comfort Measures: Not Applicable - Core Measures Any of the following diagnoses?: none Exam - Constitutional Vitals: Temp Pulse Resp BP Pulse Ox 98.8 F 82 20 149/74 96 01/27/21 07:56 01/27/21 12:40 01/27/21 07:56 01/27/21 07:56 01/27/21 07:56 Plan Activity: advance as tolerated Weight Bearing Status: Weight Bear as Tolerated Diet: low fat, low salt Special Instructions: home health RN Follow up with: PRIMARY CARE, [Primary Care Provider] - 3-5 Days Prescriptions: AtorvaSTATin [Lipitor] 40 mg PO QHS #30 tablet Meclizine [Antivert] 12.5 mg PO Q12HR #14 tablet Aspirin [Aspirin BABY CHEW TAB] 81 mg PO QDAY #30 tab.chew Ibuprofen [Motrin 400 MG tab] 400 mg PO Q8H PRN #20 tablet PRN Reason: Pain, Moderate (4-6) Clopidogrel [Plavix] 75 mg PO QDAY #30 tablet Pantoprazole [Protonix TAB] 40 mg PO QDAC #30 tablet
--- NOTE | 2021-01-27 16:50 | Progress Note ---
Assessment and Plan 80-year-old male with past medical history of prostate cancer was brought to the emergency department from home because patient began having some difficulty with and/or slurred speech since 11 AM and dizziness. In the emergency room initial CT scan of the head without contrast shows no acute intracranial abnormality. Patient is seen and evaluated by telemetry neuro in the ER and recommended to admit the patient with stroke protocol. A/P --Acute CVA Patient presented with disequilibrium/dizziness and aphasia Continue aspirin and clopidogrel and high intensity statin CT angiogram of the head and neck results reviewed-no LVO MRI brain positive for small acute infarct in the anterior left lower kamran Echo showed preserved EF PT recommended acute rehab Order for speech eval --Status post fall, pelvic x-ray showed no fracture -Ordered for repeat PT eval --Traumatic pelvic pain Pelvic x-ray showed no fracture, will order MRI pelvis for possible any hairline fracture We will also order for right femur and right knee x-ray --Dizziness, likely due to acute CVA Continue on meclizine twice a day, --Hypertension Fair --Dyslipidemia Continue Lipitor 40 mg daily --History of prostate cancer, outpatient follow-up --DVT prophylaxis with heparin --Full CODE STATUS Daily clinical course: 01/25 patient is alert and oriented x3, his speech appears fair, he offers no specific complaints, denies headache, dizziness or weakness. patient is being worked up for possible stroke. 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 Patient c ontinues to complains of dizziness. Patient did have a episode of fall this morning. Complains of hip pain. Will order for pelvic x-ray. BP noticed to be elevated. Continue to adjust BP meds. We will add meclizine for dizziness. If clinically stable patient will be discharged tomorrow morning. Discussed plan of care with daughter by phone in length -all question answered according to best o f my knowledge. 01/27: Patient noted to have more slurred speech today, repeat PT eval showed declining physical activity especially leaning more towards the right side and requiring walker and assistance on ambulation. PT recommended acute rehab. Will order MRI of the pelvis, femur x-ray and femur right knee x-ray knee x-ray. We will also have a repeat CT head to rule out for possible progression of stroke. Patient daughter was at the bedside: Plan of care was discussed thoroughly. Subjective Date of service: 01/27/21 Interval history: Patient seen and examined. Medical records and medication list reviewed. No acute event overnight noted by the RN. Patient denies any chest pain or difficulty breathing. Patient is tolerating diet. Patient complains of dizziness/vertigo, noted to have significant change in phy sical ability during PT eval Discussed plan of care at bedside with patient and with the daughter. Objective - Exam Narrative Exam: GENERAL: well-developed and well-nourished elderly white male lying on bed appeared to be in no discomfort. HEENT: Normocephalic. Atraumatic. No conjunctival congestion or icterus. Patient has moist mucous membranes. NECK: Supple. Trachea midline. CHEST/LUNGS: Clear to auscultated bilaterally, breathing nonlabored. No wheezes crackles or rhonchi. HEART/CARDIOVASCULAR: Regular in rate and rhythm. S1 and S2 positive. ABDOMEN: Abdomen is soft, nontender. Patient has normal bowel sounds. SKIN: There is no rash. Warm and dry. NEURO: No focal motor deficit. Follows command. MUSCULOSKELETAL: No joint effusion or tenderness. EXTRIMITY: No edema, no cyanosis or clubbing. PSYCH: Cooperative. - Constitutional Vitals: Vital Signs - 12hr 01/27/21 01/27/21 01/27/21 07:56 12:40 15:29 Temperature 98.8 F 98.1 F Pulse Rate 71 82 76 Respiratory 20 20 Rate Blood Pressure 149/74 130/68 O2 Sat by Pulse 96 96 Oximetry - Labs CBC & Chem 7: 01/28/21 04:33 01/28/21 04:33 HEART Score - HEART Score Troponin: Troponin T < 0.010 ng/mL (0.00-0.029) 01/25/21 00:43
--- NOTE | 2021-01-27 17:40 | XRay Report ---
XR knee 1-2V RT INDICATION / CLINICAL INFORMATION: fall. Right knee pain COMPARISON: None available. FINDINGS: BONES/JOINT(S): No acute fracture or subluxation. 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 There is no significant joint effusion. SOFT TISSUES: No significant abnormality. ADDITIONAL FINDINGS: None. Signer Name: Ashwin Bennett MD Signed: 01/27/2021 5:36 PM Workstation Name: [id number]
--- NOTE | 2021-01-27 17:43 | XRay Report ---
XR femur BILAT 2+V INDICATION / CLINICAL INFORMATION: fall. Right leg pain COMPARISON: None available. FINDINGS: BONES/JOINT(S): No acute fracture or subluxation. No significant degenerative change in the right hip SOFT TISSUES: No significant abnormality. ADDITIONAL FINDINGS: None. Signer Name: Ashwin Bennett MD Signed: 01/27/2021 5:38 PM Workstation Name: [id number]
--- NOTE | 2021-01-27 18:54 | Cat Scan Report ---
NONENHANCED CT SCAN OF THE HEAD: INDICATION / CLINICAL INFORMATION: 80 years Male; slurred speech. TECHNIQUE: Routine CT head without contrast. All CT scans at this location are performed using CT dos e reduction for ALARA by means of automated exposure control. COMPARISON: MR scan of the brain from 04/27/2021 FINDINGS: BRAIN / INTRACRANIAL CONTENTS: No acute hemorrhage, mass effect, midline shift, hydrocephalus, or acu te, large territorial infarct. Low-attenuation area in the left anterior upper kamran corresponding to the diffusion changes described in the MRI scan ; subtle periventricular low attenuation areas bilate rally more on the left side probably due to chronic small vessel disease CRANIOCERVICAL JUNCTION: No significant abnormality. ORBITS: No significant abnormality of visualized orbits. SINUSES / MASTOIDS: No significant abnormality of the visualized paranasal sinuses or mastoid air melissa ls. ADDITIONAL FINDINGS: None. IMPRESSION: Low-attenuation area in the left upper kamran anteriorly; this finding Correlates with the MR findings from 01/25/2021 Signer Name: Janna Ramey MD Signed: 01/27/2021 6:49 PM Workstation Name: [id number]
[2021-01-27] MEDS: MAGNESIUM HYDROXIDE (MOM) ORAL LIQD UDC PO PRN (23:04)
[2021-01-27] MEDS: ACETAMINOPHEN 325 MG TAB PO PRN (23:05)
[2021-01-28 05:48] LABS: Basophils % (Auto) 0.5 % (0.0-1.8); Eosinophils # (Auto) 0.1 K/mm3 (0.0-0.4); Eosinophils % (Auto) 1.7 % (0.0-4.3); Hematocrit 38.3 % (35.5-45.6); Hemoglobin 13.3 gm/dl (11.8-15.2); Lymphocytes # (Auto) 0.9 K/mm3 (1.2-5.4); Lymphocytes % (Auto) 15.2 % (13.4-35.0); Mean Corpuscular HGB Conc 35 % (32-34); Mean Corpuscular Volume 90 fl (84-94); Monocytes # (Auto) 0.8 K/mm3 (0.0-0.8); Monocytes % (Auto) 14.3 % (0.0-7.3); Platelet Count 154 K/mm3 (140-440); Red Blood Count 4.26 M/mm3 (3.65-5.03); Red Cell Distribution Width 13.2 % (13.2-15.2)
[2021-01-28 05:58] LABS: BUN/Creatinine Ratio 19; Blood Urea Nitrogen 15 mg/dL (9-20); Calcium 8.3 mg/dL (8.4-10.2); Hemolysis Index 8
--- NOTE | 2021-01-28 09:47 | Magnetic Resonance Report ---
MR PELVIS WITHOUT CONTRAST HISTORY: Fall, right hip pain, difficulty walking COMPARISON: Bilateral hips 01/26/2021 TECHNIQUE: Multisequence, multiplane are MRI without contrast. FINDINGS: There is nonspecific subcutaneous and muscular edema throughout the soft tissues posterior and latera l to the right hip. With given history, this is most consistent with a moderate to severe contusion. Cellulitis could be considered in the appropriate clinical scenario. There is no evidence for hematom a or encapsulated fluid collection. No obvious muscular laceration is appreciated. The bone marrow signal seen throughout the pelvis and proximal femurs is within normal limits. There is no evidence for fracture or bone lesion. Mild to moderate osteoarthritic changes are noted at both hip joints. No osteonecrosis. The pelvic viscera are intact. Mild trabeculation of the bladder wall is noted. No pelvic fluid colle ction. IMPRESSION: Nonspecific subcutaneous and muscular edema throughout the soft tissues lateral and posterior to the right hip most consistent with a moderate to severe contusion. No evidence for acute osseous injury o r hematoma. Signer Name: Tayo Swan Jr, MD Signed: 01/28/2021 9:42 AM Workstation Name: [id number]
[2021-01-28] MEDS: ASPIRIN 81 MG TAB CHEW PO SCH (10:12)
[2021-01-28] MEDS: MECLIZINE 25 MG TAB PO SCH ×2 (10:12→21:53)
[2021-01-28] MEDS: PANTOPRAZOLE 40 MG TAB PO SCH (10:13)
[2021-01-28] MEDS: CLOPIDOGREL 75 MG TAB PO SCH (10:13)
[2021-01-28] MEDS: amLODIPine 5 MG TAB PO SCH (10:13)
[2021-01-28] MEDS: TAMSULOSIN 0.4 MG CAP PO SCH (10:13)
[2021-01-28] MEDS: HEPARIN 5,000 UNIT/1 ML VIAL SUB-Q SCH ×3 (10:17→21:54)
--- NOTE | 2021-01-28 15:05 | Progress Note ---
Assessment and Plan 80-year-old male with past medical history of prostate cancer was brought to the emergency department from home because patient began having some difficulty with and/or slurred speech since 11 AM and dizziness. In the emergency room initial CT scan of the head without contrast shows no acute intracranial abnormality. Patient is seen and evaluated by telemetry neuro in the ER and recommended to admit the patient with stroke protocol. A/P --Acute CVA Patient presented with disequilibrium/dizziness and aphasia Continue aspirin and clopidogrel and high intensity statin CT angiogram of the head and neck results reviewed-no LVO MRI brain positive for small acute infarct in the anterior left lower kamran Echo showed preserved EF PT recommended acute rehab Order for speech eval --Status post fall, pelvic x-ray showed no fracture Ordered for repeat PT eval and recommended --Traumatic pelvic pain Develop following fall Pelvic x-ray and MRI pelvis showed no fracture, Continue to provide supportive care --Dizziness, likely due to acute CVA Continue on meclizine twice a day, --Hypertension Fair --Dyslipidemia Continue Lipitor 40 mg daily --History of prostate cancer, outpatient follow-up --DVT prophylaxis with heparin --Full CODE STATUS Daily clinical course: 01/25 patient is alert and oriented x3, his speech appears fair, he offers no specific complaints, denies headache, dizziness or weakness. patient is being worked up for possible stroke. 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 Patient continues to complains of dizziness. Patient did have a episode of fall this morning. Complains of hip pain. Will order for pelvic x-ray. BP noticed to be elevated. Continue to adjust BP meds. We will add meclizine for dizziness. If clinically stable patient will be discharged tomorrow morning. Discussed plan of care with daughter by phone in length -all question answered according to best of my knowledge. 01/27: Patient noted to have more slurred speech today, repeat PT eval showed declining physical activity especially leaning more towards the right side and requiring walker and assistance on ambulation. PT recommended acute rehab. Will order MRI of the pelvis, femur x-ray and femur right knee x-ray knee x-ray. We will also have a repeat CT head to rule out for possible progression of stroke. Patient daughter was at the bedside: Plan of care was discussed thoroughly. 01/28: Family and patient agreeable for acute rehab. technical services manager consulted for acute rehab placement. Continue current management and plan. Subjective Date of service: 01/28/21 Interval history: Patient seen and examined. Medical records and medication list reviewed. No acute event overnight noted by the RN. Patient denies any chest pain or difficulty breathing. Patient is tolerating diet. Patient complains of dizziness/vertigo, PT recommended acute rehab Discussed plan of care at bedside with patient Objective - Exam Narrative Exam: GENERAL: well-developed and well-nourished elderly white male lying on bed appeared to be in no discomfort. HEENT: Normocephalic. Atraumatic. No conjunctival congestion or icterus. Patient has moist mucous membranes. NECK: Supple. Trachea midline. CHEST/LUNGS: Clear to auscultated bilaterally, breathing nonlabored. No wheezes crackles or rhonchi. HEART/CARDIOVASCULAR: Regular in rate and rhythm. S1 and S2 positive. ABDOMEN: Abdomen is soft, nontender. Patient has normal bowel sounds. SKIN: There is no rash. Warm and dry. NEURO: No focal motor deficit. Follows command. MUSCULOSKELETAL: No joint effusion or tenderness. EXTRIMITY: No edema, no cyanosis or clubbing. PSYCH: Cooperative. - Constitutional Vitals: Vital Signs - 12hr 01/28/21 01/28/21 01/28/21 04:43 07:42 10:13 Temperature 99.1 F 98.5 F Pulse Rate 60 61 61 Respiratory 20 18 Rate Blood Pressure 106/59 132/68 132/68 O2 Sat by Pulse 95 95 Oximetry 01/28/21 11:19 Temperature 98.0 F Pulse Rate 69 Respiratory 18 Rate Blood Pressure 122/63 O2 Sat by Pulse 93 Oximetry - Labs CBC & Chem 7: 01/28/21 04:33 01/28/21 04:33 Labs: Abnormal lab results 01/28/21 01/28/21 Range/Units 04:33 04:33 MCHC 35 H (32-34) % Dickinson % (Auto) 14.3 H (0.0-7.3) % Lymph # (Auto) 0.9 L (1.2-5.4) K/mm3 Calcium 8.3 L (8.4-10.2) mg/dL HEART Score - HEART Score Troponin: Troponin T < 0.010 ng/mL (0.00-0.029) 01/25/21 00:43
[2021-01-29] MEDS: HEPARIN 5,000 UNIT/1 ML VIAL SUB-Q SCH ×4 (05:30→22:45)
[2021-01-29] MEDS: ASPIRIN 81 MG TAB CHEW PO SCH (09:14)
[2021-01-29] MEDS: TAMSULOSIN 0.4 MG CAP PO SCH (09:15)
[2021-01-29] MEDS: CLOPIDOGREL 75 MG TAB PO SCH (09:15)
[2021-01-29] MEDS: amLODIPine 5 MG TAB PO SCH (09:15)
[2021-01-29] MEDS: PANTOPRAZOLE 40 MG TAB PO SCH (09:15)
[2021-01-29] MEDS: MECLIZINE 25 MG TAB PO SCH ×2 (09:15→20:35)
--- NOTE | 2021-01-29 14:34 | Progress Note ---
Assessment and Plan 80-year-old male with past medical history of prostate cancer was brought to the emergency department from home because patient began having some difficulty with and/or slurred speech since 11 AM and dizziness. In the emergency room initial CT scan of the head without contrast shows no acute intracranial abnormality. Patient is seen and evaluated by telemetry neuro in the ER and recommended to admit the patient with stroke protocol. A/P --Acute CVA Patient presented with disequilibrium/dizziness and aphasia Continue aspirin and clopidogrel and high intensity statin CT angiogram of the head and neck results reviewed-no LVO MRI brain positive for small acute infarct in the anterior left lower kamran Echo showed preserved EF PT recommended acute rehab Order for speech eval --Status post fall, pelvic x-ray showed no fracture Ordered for repeat PT eval and recommended --Traumatic pelvic pain Develop following fall Pelvic x-ray and MRI pelvis showed no fracture, Continue to provide supportive care --Dizziness, likely due to acute CVA Continue on meclizine twice a day, --Hypertension Fair --Dyslipidemia Continue Lipitor 40 mg daily --History of prostate cancer, outpatient follow-up --DVT prophylaxis with heparin --Full CODE STATUS Daily clinical course: 01/25 patient is alert and oriented x3, his speech appears fair, he offers no specific complaints, denies headache, dizziness or weakness. patient is being worked up for possible stroke. 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 Patient continues to complains of dizziness. Patient did have a episode of fall this morning. Complains of hip pain. Will order for pelvic x-ray. BP noticed to be elevated. Continue to adjust BP meds. We will add meclizine for dizziness. If clinically stable patient will be discharged tomorrow morning. Discussed plan of care with daughter by phone in length -all question answered according to best of my knowledge. 01/27: Patient noted to have more slurred speech today, repeat PT eval showed declining physical activity especially leaning more towards the right side and requiring walker and assistance on ambulation. PT recommended acute rehab. Will order MRI of the pelvis, femur x-ray and femur right knee x-ray knee x-ray. We will also have a repeat CT head to rule out for possible progression of stroke. Patient daughter was at the bedside: Plan of care was discussed thoroughly. 01/28: Family and patient agreeable for acute rehab. manager biostatistics consulted for acute rehab placement. Continue current management and plan. 01/29: Pelvic pain much improved today, patient able to walk with assistance and walker. Pending acute rehab placement. Subjective Date of service: 01/29/21 Interval history: Patient seen and examined. Medical records and medication list reviewed. No acute event overnight noted by the RN. Patient denies any chest pain or difficulty breathing. Patient is tolerating diet. Pelvic pain improved, PT recommended acute rehab Discussed plan of care at bedside with patient Objective - Exam Narrative Exam: GENERAL: well-developed and well-nourished elderly white male lying on bed appeared to be in no discomfort. HEENT: Normocephalic. Atraumatic. No conjunctival congestion or icterus. Patient has moist mucous membranes. NECK: Supple. Trachea midline. CHEST/LUNGS: Clear to auscultated bilaterally, breathing nonlabored. No wheezes crackles or rhonchi. HEART/CARDIOVASCULAR: Regular in rate and rhythm. S1 and S2 positive. ABDOMEN: Abdomen is soft, nontender. Patient has normal bowel sounds. SKIN: There is no rash. Warm and dry. NEURO: No focal motor deficit. Follows command. MUSCULOSKELETAL: No joint effusion or tenderness. EXTRIMITY: No edema, no cyanosis or clubbing. PSYCH: Cooperative. - Constitutional Vitals: Vital Signs - 12hr 01/29/21 01/29/21 03:23 10:00 Temperature 98.2 F Pulse Rate 84 80 Respiratory 18 Rate Blood Pressure 130/76 [Right] O2 Sat by Pulse 96 98 Oximetry - Labs CBC & Chem 7: 01/28/21 04:33 01/28/21 04:33 HEART Score - HEART Score Troponin: Troponin T < 0.010 ng/mL (0.00-0.029) 01/25/21 00:43
[2021-01-30] MEDS: MECLIZINE 25 MG TAB PO SCH (01:44)
[2021-01-30] MEDS: HEPARIN 5,000 UNIT/1 ML VIAL SUB-Q SCH ×3 (06:43→21:17)
[2021-01-30] MEDS: PANTOPRAZOLE 40 MG TAB PO SCH (08:29)
[2021-01-30] MEDS: ASPIRIN 81 MG TAB CHEW PO SCH (09:37)
[2021-01-30] MEDS: TAMSULOSIN 0.4 MG CAP PO SCH (09:37)
[2021-01-30] MEDS: amLODIPine 5 MG TAB PO SCH (09:38)
[2021-01-30] MEDS: CLOPIDOGREL 75 MG TAB PO SCH (09:39)
[2021-01-30] MEDS ORDERED: MECLIZINE 25 MG TAB PO SCH (10:00)
--- NOTE | 2021-01-30 13:09 | Progress Note ---
Assessment and Plan Assessment and Plan --Acute CVA Patient presented with disequilibrium/dizziness and aphasia Continue aspirin and clopidogrel and high intensity statin CT angiogram of the head and neck results reviewed-no LVO MRI brain positive for small acute infarct in the anterior left lower kamran Echo showed preserved EF PT recommended acute rehab Order for speech eval --Status post fall, pelvic x-ray showed no fracture Ordered for repeat PT eval and recommended --Traumatic pelvic pain Develop following fall Pelvic x-ray and MRI pelvis showed no fracture, Continue to provide supportive care --Dizziness, likely due to acute CVA Continue on meclizine twice a day, --Hypertension Fair --Dyslipidemia Continue Lipitor 40 mg daily --History of prostate cancer, outpatient follow-up --DVT prophylaxis with heparin --Full CODE STATUS Subjective Date of service: 01/30/21 Interval history: 80-year-old male with past medical history of prostate cancer was brought to the emergency department from home because patient began having some difficulty with and/or slurred speech since 11 AM and dizziness. In the emergency room initial CT scan of the head without contrast shows no acute intracranial abnormality. Patient is seen and evaluated by telemetry neuro in the ER and recommended to admit the patient with stroke protocol. Daily clinical course: 01/25 patient is alert and oriented x3, his speech appears fair, he offers no specific complaints, denies headache, dizziness or weakness. patient is being worked up for possible stroke. 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 Patient continues to complains of dizziness. Patient did have a episode of fall this morning. Complains of hip pain. Will order for pelvic x-ray. BP noticed to be elevated. Continue to adjust BP meds. We will add meclizine for dizziness. If clinically stable patient will be discharged tomorrow morning. Discussed plan of care with daughter by phone in length -all question answered according to best of my knowledge. 01/27: Patient noted to have more slurred speech today, repeat PT eval showed dec lining physical activity especially leaning more towards the right side and requiring walker and assistance on ambulation. PT recommended acute rehab. Will order MRI of the pelvis, femur x-ray and femur right knee x-ray knee x-ray. We will also have a repeat CT head to rule out for possible progression of stroke. Patient daughter was at the bedside: Plan of care was discussed thoroughly. 01/28: Family and patient agreeable for acute rehab. academic affairs manager consulted for acute rehab placement. Continue current management and plan. 01/29: Pelvic pain much improved today, patient able to walk with assistance and walker. Pending acute rehab placement. 01/30/2021 Patient waiting for transfer to rehab facility Patient still has a dysphagia and unsteady gait Objective - Constitutional Vitals: Vital Signs - 12hr 01/30/21 01/30/21 01/30/21 05:07 09:38 10:00 Temperature 97.3 F L Pulse Rate 79 89 89 Respiratory 16 18 Rate Blood Pressure 148/78 114/64 O2 Sat by Pulse 91 Oximetry General appearance: Present: no acute distress, well-nourished - EENT Eyes: PERRL, EOM intact ENT: hearing intact, clear oral mucosa Ears: bilateral: normal - Neck Neck: supple, normal ROM - Respiratory Respiratory effort: normal Respiratory: bilateral: CTA - Breasts Breasts: normal - Cardiovascular Rhythm: regular Heart Sounds: Present: S1 & S2. Absent: gallop, rub Extremities: pulses intact, No edema, normal color, Full ROM - Gastrointestinal General gastrointestinal: Present: soft, non-tender, non-distended, normal bowel sounds - Genitourinary Male genitourinary: normal - Integumentary Integumentary: clear, warm, dry - Musculoskeletal Musculoskeletal: 1, strength equal bilaterally - Neurologic Neurologic: moves all extremities - Psychiatric Psychiatric: memory intact, appropriate mood/affect, intact judgment & insight - Labs CBC & Chem 7: 01/28/21 04:33 01/28/21 04:33 HEART Score - HEART Score Troponin: Troponin T < 0.010 ng/mL (0.00-0.029) 01/25/21 00:43
--- NOTE | 2021-01-30 13:11 | Discharge Summary ---
Providers - Providers Date of Admission: 01/25/21 12:02 Date of discharge: 01/31/21 Attending physician: LAURENCE POON 01/24/21 Consult to Physician [CONS] Routine Comment: Consulting Provider: AMISH OSPINA Physician Instructions: Reason For Exam: cva 01/24/21 22:39 Occupational Therapy Evaluate and Treat [CONS] Routine Comment: Reason For Exam: Neuro deficits 01/26/21 17:30 Speech Therapy Evaluation and Treat [CONS] Routine Reason For Exam: cva 01/27/21 10:25 Physical Therapy Evaluation and Treat [CONS] Urgent Comment: Reason For Exam: pt stated he fell Primary care physician: [employer] Hospitalization Condition: Stable Hospital course: Subjective Date of service: 01/31/21 Interval history: 80-year-old male with past medical history of prostate cancer was brought to the emergency department from home because patient began having some difficulty with and/or slurred speech since 11 AM and dizziness. In the emergency room initial CT scan of the head without contrast shows no acute intracranial abnormality. Patient is seen and evaluated by telemetry neuro in the ER and recommended to admit the patient with stroke protocol. Daily clinical course: 01/25 patient is alert and oriented x3, his speech appears fair, he offers no specific complaints, denies headache, dizziness or weakness. patient is being worked up for possible stroke. 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 Patient continues to complains of dizziness. Patient did have a episode of fall this morning. Complains of hip pain. Will order for pelvic x-ray. BP noticed to be elevated. Continue to adjust BP meds. We will add meclizine for dizziness. If clinically stable patient will be discharged tomorrow morning. Discussed plan of care with daughter by phone in length -all question answered according to best of my knowledge. 01/27: Patient noted to have more slurred speech today, repeat PT eval showed declining physical activity especially leaning more towards the right side and requiring walker and assistance on ambulation. PT recommended acute rehab. Will order MRI of the pelvis, femur x-ray and femur right knee x-ray knee x-ray. We will also have a repeat CT head to rule out for possible progression of stroke. Patient daughter was at the bedside: Plan of care was discussed thoroughly. 01/28: Family and patient agreeable for acute rehab. guest service manager consulted for acute rehab placement. Continue current management and plan. 01/29: Pelvic pain much improved today, patient able to walk with assistance and walker. Pending acute rehab placement. 01/30/2021 Patient waiting for transfer to rehab facility Patient still has a dysphagia and unsteady gait 01/31/2021 Patient going to acute rehab today Assessment and Plan --Acute CVA Patient presented with disequilibrium/dizziness and aphasia Continue aspirin and clopidogrel and high intensity statin CT angiogram of the head and neck results reviewed-no LVO MRI brain positive for small acute infarct in the anterior left lower kamran Echo showed preserved EF PT recommended acute rehab Order for speech eval --Status post fall, pelvic x-ray showed no fracture Ordered for repeat PT eval and recommended --Traumatic pelvic pain Develop following fall Pelvic x-ray and MRI pelvis showed no fracture, Continue to provide supportive care --Dizziness, likely due to acute CVA Continue on meclizine twice a day, --Hypertension Fair --Dyslipidemia Continue Lipitor 40 mg daily --History of prostate cancer, outpatient follow-up --DVT prophylaxis with heparin --Full CODE STATUS Disposition: [id number]/[id number] ANOTHER TYPE [facility] Final Discharge Diagnosis (Prints w/discharge instructions): Acute CVA with left pontine infarction. Hypertension. Dysphagia. Pelvic contusion injury. S/p fall. Dyslipidemia Time spent for discharge: 35 minutes - Discharge Diagnoses (1) Acute CVA (cerebrovascular accident) Status: Acute Comment: Patient is ataxic and dysphasic Patient going for acute rehab Dual antiplatelet therapy (2) Hypertension Status: Acute Qualifiers: Hypertension type: essential hypertension Qualified Code(s): I10 - Essential (primary) hypertension Comment: Continue antihypertensives (3) Bony pelvic pain Status: Acute Comment: Secondary to fall and contusion injury (4) Aphasia Status: Acute (5) Disequilibrium Status: Acute (6) Dysphasia Status: Acute Comment: Secondary to left pontine infarction Core Measure Documentation - Palliative Care Palliative Care/ Comfort Measures: Not Applicable - Core Measures Any of the following diagnoses?: none Exam - Constitutional Vitals: Temp Pulse Resp BP Pulse Ox 97.3 F L 89 18 114/64 91 01/30/21 05:07 01/30/21 10:00 01/30/21 10:00 01/30/21 09:38 01/30/21 05:07 General appearance: Present: no acute distress, well-nourished - EENT Eyes: Present: PERRL ENT: hearing intact, clear oral mucosa - Neck Neck: Present: supple, normal ROM - Respiratory Respiratory effort: normal Respiratory: bilateral: CTA - Cardiovascular Heart rate: 78 Rhythm: regular Heart Sounds: Present: S1 & S2. Absent: rub, click - Extremities Extremities: no ischemia, pulses intact, pulses symmetrical, No edema Peripheral Pulses: within normal limits - Abdominal General gastrointestinal: Present: soft, non-tender, non-distended, normal bowel sounds Male genitourinary: Present: normal - Rectal Rectal Exam: deferred - Integumentary Integumentary: Present: clear, warm, dry - Musculoskeletal Musculoskeletal: gait normal, strength equal bilaterally - Psychiatric Psychiatric: appropriate mood/affect, intact judgment & insight - Neurologic Neurologic: CNII-XII intact, moves all extremities - Allied Health Allied health notes reviewed: nursing, case management Plan Weight Bearing Status: Weight Bear as Tolerated Diet: low salt Follow up with: PRIMARY CARE, [Primary Care Provider] - 3-5 Days Prescriptions: Meclizine [Antivert] 12.5 mg PO Q12HR #14 tablet Aspirin [Aspirin BABY CHEW TAB] 81 mg PO QDAY #30 tab.chew AtorvaSTATin [Lipitor] 40 mg PO QHS #30 tablet Ibuprofen [Motrin 400 MG tab] 400 mg PO Q8H PRN #20 tablet PRN Reason: Pain, Moderate (4-6) Clopidogrel [Plavix] 75 mg PO QDAY #30 tablet Pantoprazole [Protonix TAB] 40 mg PO QDAC #30 tablet Other Discharge Orders: Physicial Therapy (Amb) Location: None Selected
[2021-01-31 04:57] VITALS: BP 143/81
[2021-01-31] MEDS: HEPARIN 5,000 UNIT/1 ML VIAL SUB-Q SCH (06:04)
[2021-01-31] MEDS: PANTOPRAZOLE 40 MG TAB PO SCH (07:57)
== END 2021-01-31 09:00 | DRG 66 ==
LOC: ED 20:53 → 4A 22:24 → OBSVTOIN 01-25 12:02
PROVIDERS: ADMIT Hospitalist; ATTEND Internal Medicine
DX: I63.89 Other cerebral infarction (principal); R47.01 Aphasia; R42 Dizziness and giddiness; I10 Essential (primary) hypertension; Z20.822 Contact with and (suspected) exposure to COVID-19; R47.81 Slurred speech; E78.5 Hyperlipidemia, unspecified; R13.10 Dysphagia, unspecified; E87.8 Other disorders of electrolyte and fluid balance, not elsewhere classified; R29.810 Facial weakness; R47.1 Dysarthria and anarthria; R29.700 NIHSS score 0; Z85.46 Personal history of malignant neoplasm of prostate; Z79.899 Other long term (current) drug therapy
CPT/HCPCS: 36415; 70450; 70496; 70498; 70551; 72195; 73521; 80048; 80053; 80061; 82550; 82553; 82962; 84443; 84484; 85025; 85610; 85670; 85730; 93005; 93306; 93880; 94640; G0378; J7070; J1644; Q9967; U0003